=== PATIENT | male | born 1945 | race Caucasian/White ===

== ENCOUNTER 2024-11-08 17:02 | Emergency (ER) | payer MEDICARE ==
[~2024-11-08 17:02] MED LIST: ASPI81TA52 PO; HYDR25TA90 PO; ISOS30TA84 PO; LOSA50TA64 PO; NO HOME MEDS; NOR5T PO
== END 2024-11-08 17:09 | disposition left against medical advice (07) ==
LOC: ER 17:03
DX: R51.9 Headache, unspecified (principal); Z53.21 Procedure and treatment not carried out due to patient leaving prior to being seen by health care provider